=== PATIENT | male | born 2000 | race Caucasian/White ===

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

== ENCOUNTER 2020-05-01 12:06 | Emergency (ER) | payer MEDICAID, OTHER ==
[~2020-05-01] VITALS: Ht 177.8 cm; Wt 91.0 kg
[2020-05-01] MEDS ORDERED: LIDOCAINE HCL/PF 1% 10 MG/ML 5ML VIAL IJ ONE (13:00)
[2020-05-01] MEDS ORDERED: TETANUS, DIPHTHERIA, PERTUSSIS VAC/PF 0.5ML (>7YR OLD) IM ONE (13:00)
[2020-05-01] MEDS ORDERED: BACITRACIN ZINC OINT UDPKT TOP ONE (13:00)
[2020-05-01 14:30] VITALS: BP 130/78
== END 2020-05-01 14:30 | disposition home or self-care (01) ==
LOC: ER 12:06
DX: M79.644 Pain in right finger(s) (principal)
CPT/HCPCS: 73120; 90471; 90715; 99283; J3490; Z7610

== ENCOUNTER 2021-12-14 02:08 | Emergency (ER) | payer MEDICAID, OTHER ==
[~2021-12-14] VITALS: Ht 177.8 cm; Wt 96.0 kg
[2021-12-14] MEDS: LIDOCAINE 5% PATCH TOP SCH ×2 (03:00→04:29)
[2021-12-14] MEDS ORDERED: HYDROCODONE/APAP 7.5/325MG 1 TAB TABLET PO ONE (03:00)
[2021-12-14] MEDS ORDERED: METHOCARBAMOL 500MG TABLET PO ONE (03:00)
[2021-12-14] MEDS ORDERED: LIDO1ADH23 TP (05:19)
[2021-12-14] MEDS ORDERED: METH-773 MT (05:19)
[2021-12-14] MEDS ORDERED: NAPR-681 MT (05:19)
[2021-12-14 06:14] VITALS: BP 164/69
[2021-12-14] MEDS ORDERED: KETOROLAC 60MG/2ML VIAL IM ONE (06:15)
== END 2021-12-14 05:40 | disposition home or self-care (01) ==
LOC: ER 02:32
DX: M54.9 Dorsalgia, unspecified (principal)
CPT/HCPCS: 96372; 99283; J1885; Z7610